=== PATIENT | female | born 1950 | race Caucasian/White ===

== ENCOUNTER 2022-05-28 05:35 | Day surgery (SDC) | payer OTHER ==
[~2022-05-28] VITALS: Ht 157.5 cm; Wt 60.3 kg
[~2022-05-28 05:35] MED LIST: CLONAZEPAM2 MG PO; DEXILANT30 MG PO; FLEXERIL PO; LIPITOR20 MG PO; MACRODANTIN100 M1 PO; NEURONTIN800 MG PO; ULTRACET PO; ZANAFLEX4 M1 PO
[2022-05-28] MEDS ORDERED: TRAM1TAB98 PO (09:10)
== END 2022-05-28 12:30 | disposition home or self-care (01) ==
LOC: CIR.AMB 05:35
PROVIDERS: ATTEND Surgery
DX: R15.9 Full incontinence of feces (principal); R19.4 Change in bowel habit; E78.00 Pure hypercholesterolemia, unspecified; Z88.5 Allergy status to narcotic agent; Z86.16 Personal history of COVID-19; Z20.822 Contact with and (suspected) exposure to COVID-19
CPT/HCPCS: 64590; 95972; 64585; L8679